=== PATIENT | female | born 1990 | race Caucasian/White ===

== ENCOUNTER 2017-03-30 11:26 | Emergency (ER) | payer OTHER ==
[2017-03-30] MEDS ORDERED: 0.9 % SODIUM CHLORIDE 1,000 ML IV ONE (11:32)
[2017-03-30] MEDS ORDERED: METOPROLOL TARTRATE 5 MG/5 ML VIAL IVP ONE ×5 (11:32→11:52)
[2017-03-30 11:44] LABS: BASOPHILS % 0.5 (0.0-1.5); EOSINOPHILS % 1.1 % (0.0-6.8); MEAN CORPUSCULAR HEMOGLOBIN 31.3 pg (28.0-34.0); MEAN CORPUSCULAR VOLUME 94.6 fl (80.0-100.0); MONOCYTES % 4.4 % (0.0-11.0); NEUTROPHILS # 10.4 # k/uL (1.4-7.7)
[2017-03-30 12:00] LABS: eGFR (African) > 60; eGFR (Non-African) > 60
[2017-03-30 13:15] LABS: APPEARANCE,URINE Clear (CLEAR); COLOR,URINE Yellow (YELLOW); OCCULT BLOOD,URINE Negative (NEGATIVE); PH URINE 5.5 (5.0 - 8.0); UROBILINOGEN URINE 0.2 Eu (0.2-1.0)
[2017-03-30] MEDS ORDERED: POTASSIUM CHLORIDE 20 MEQ TABLET.ER PO ONE (13:27)
--- NOTE | 2017-03-30 13:30 | ED Physician Documentation ---
Palpitations - HISTORIAN Historian: patient - HPI Stated Complaint: fast heart rate Chief Complaint: Palpitations Onset: minutes (20) Timing: sudden onset Context: hx of SVT Quality: fast, pounding heart beat Associated Symptoms: none Worsened by:: nothing Further Comments: yes (26 year old female patient presents with complaint of SVT. Patient reports history of SVT, states she quit taking her metoprolol years ago. Is followed by Dr Garcia at [facility].) - ROS CONST: recent illness (abscessed wisdom tooth; on amoxil) RESP: denies: productive cough, bloody cough GI/: denies: nausea, vomiting with blood, black stools, abdominal pain, diarrhea, problems urinating, vomiting, other MS/SKIN/LYMPH: denies: ankle swelling, calf pain, rash, leg pain, other EYES/ENT: none NEURO/PSYCH: none Comment: LMP - 3 weeks ago - SOCIAL HX Smoking History: cigarettes - FAMILY HX Family History: denies: none - PAST HX Cardiac Disease: other (Ablation 2004 & 2009) Cardiac Rhythm Problems: PSVT Surgeries/Procedures: other (Ablation 2004 & 2009) Immunizations: UTD Allergies/Adverse Reactions: Allergies Allergy/AdvReac Type Severity Reaction Status Date / Time No Known Allergies Allergy Unverified 03/30/17 11:54 Home Medications: Ambulatory Orders Medication Instructions Recorded Metoprolol Tartrate [Lopressor] 25 mg PO BID #60 tablet 03/30/17 - VITAL SIGNS Vital Signs: Vital Signs Temp Pulse Resp BP Pulse Ox 94 H 20 115/80 96 03/30/17 13:40 03/30/17 13:40 03/30/17 13:40 03/30/17 13:40 - REVIEWED ASSESSMENTS Nursing Assessment Reviewed: Yes Vitals Reviewed: Yes Progress - Progress Progress: Patient in SVT on arrival, denies CP or SOB. Patient took a 50mg metoprolol at work, then came to ER. Lopressor 10mg total given IV - rate down in 90s. [address] Soto at [facility], patient last seen on 12/2015. Recommended restarting Metoprolol at 25mg po bid, have patient follow up in office. Reviewed discharge instructions with patient, risk of non-compliance with medications discussed. ED Results Lab/Radiology - Lab Results Lab Results: Lab Results 03/30/17 03/30/17 03/30/17 13:10 11:40 11:40 WBC RBC Hgb Hct MCV MCH MCHC RDW Plt Count Neut % (Auto) Lymph % (Auto) Divide % (Auto) Eos % (Auto) Baso % (Auto) Neut # Lymph # Divide # Eos # Baso # Reactive Lymphs % Reactive Lymphs # Sodium 136 mmol/L mmol/L (136-145) Potassium 3.7 mmol/L mmol/L (3.5-5.0) Chloride 105 mmol/L mmol/L (98-110) Carbon Dioxide 28 mmol/L mmol/L (20-32) BUN 11 mg/dL mg/dL (10-26) Creatinine 0.6 mg/dL mg/dL (0.4-1.5) Estimated Creat Clear 156 Est GFR ( Amer) > 60 (60 - ) Est GFR (Non-Af Amer) > 60 (60 - ) Glucose 106 mg/dL H mg/dL (70-99) Calcium 10.4 mg/dL mg/dL (8.5-10.5) Total Bilirubin 0.2 mg/dL mg/dL (0.2-1.2) AST 14 U/L U/L (0-41) ALT 15 U/L U/L (0-45) Alkaline Phosphatase 71 U/L U/L (46-116) Creatine Kinase 35 U/L U/L (0-225) CK-MB (CK-2) 0.3 ng/mL ng/mL (0.0-5.6) Troponin I < 0.03 ng/mL L ng/mL (0.03-0.06) Total Protein 8.2 g/dL g/dL (6.0-8.5) Albumin 5.2 g/dL g/dL (3.0-5.5) Urine Color Yellow (YELLOW) Urine Appearance Clear (CLEAR) Urine pH 5.5 (5.0 - 8.0) Ur Specific [place] <=1.005 L (1.010-1.030) Urine Protein Negative mg/dL mg/dL (NEGATIVE) Urine Ketones Negative mg/dL mg/dL (NEGATIVE) Urine Occult Blood Negative (NEGATIVE) Urine Nitrite Negative (NEGATIVE) Urine Bilirubin Negative (NEGATIVE) Urine Urobilinogen 0.2 Eu Eu (0.2-1.0) Ur Leukocyte Esterase 1+ H (NEGATIVE) Urine RBC 0-2 (0-2 HPF) Urine WBC 5-10 H (0-5 HPF) Ur Squamous Epith Cells Few (NEG-FEW) Urine Bacteria Few H (NEGATIVE) Urine Glucose Negative mg/dL mg/dL (NEGATIVE) 03/30/17 11:40 WBC 15.90 K/ul H K/ul (4.00-12.00) RBC 4.64 M/ul M/ul (3.90-5.20) Hgb 14.5 g/dL g/dL (12.0-16.0) Hct 43.9 % % (34.5-46.5) MCV 94.6 fl fl (80.0-100.0) MCH 31.3 pg pg (28.0-34.0) MCHC 33.0 g/dL g/dL (30.0-36.0) RDW 13.9 % % (11.3-14.3) Plt Count 362 K/mm3 K/mm3 (130-400) Neut % (Auto) 65.4 % % (39.0-79.0) Lymph % (Auto) 27.4 % % (16.0-50.0) Divide % (Auto) 4.4 % % (0.0-11.0) Eos % (Auto) 1.1 % % (0.0-6.8) Baso % (Auto) 0.5 (0.0-1.5) Neut # 10.4 # k/uL H # k/uL (1.4-7.7) Lymph # 4.4 # k/uL H # k/uL (0.6-4.0) Divide # 0.7 # k/uL # k/uL (0.0-0.9) Eos # 0.2 # k/uL # k/uL (0.0-0.6) Baso # 0.1 # k/uL # k/uL (0.0-0.5) Reactive Lymphs % 1.2 % % (0.0-5.0) Reactive Lymphs # 0.2 # k/uL # k/uL (0.0-0.8) Sodium Potassium Chloride Carbon Dioxide BUN Creatinine Estimated Creat Clear Est GFR ( Amer) Est GFR (Non-Af Amer) Glucose Calcium Total Bilirubin AST ALT Alkaline Phosphatase Creatine Kinase CK-MB (CK-2) Troponin I Total Protein Albumin Urine Color Urine Appearance Urine pH Ur Specific [place] Urine Protein Urine Ketones Urine Occult Blood Urine Nitrite Urine Bilirubin Urine Urobilinogen Ur Leukocyte Esterase Urine RBC Urine WBC Ur Squamous Epith Cells Urine Bacteria Urine Glucose - Orders Orders: ED Orders Category Date Time Status Continuous EKG monitoring Q30M Care 03/30/17 11:35 Active Continuous Pulse Oximetry Q30M Care 03/30/17 11:[address] Saline Lock/IV NOW Care 03/30/17 11:35 Active CHEST 1 VIEW [RAD] Stat Exams 03/30/17 11:35 Completed CBC/PLATELET/DIFF Stat Lab 03/30/17 11:40 Completed CKMB Stat Lab 03/30/17 11:40 Completed CMP Stat Lab 03/30/17 11:40 Completed CREATINE KINASE Stat Lab 03/30/17 11:40 Completed TROPONIN I (cTnI) Stat Lab 03/30/17 11:40 Completed UA W/MICRO IF INDICATED Stat Lab 03/30/17 13:10 Completed URINE CULTURE Stat Lab 03/30/17 13:10 Received 0.9 % Sodium Chloride [Normal Saline] 1,000 ml Med 03/30/17 11:32 Discontinued IV .STK-MED Metoprolol Tartrate [Toprol] Med 03/30/17 11:32 Discontinued 10 mg IVP .STK-MED ONE Metoprolol Tartrate [Toprol] Med 03/30/17 11:36 Discontinued 25 mg IVP NOW ONE Metoprolol Tartrate [Toprol] Med 03/30/17 11:52 Discontinued 25 mg IVP NOW ONE Potassium Chloride [Klor-Con M20] Med 03/30/17 13:27 Discontinued 40 meq PO NOW ONE Oxygen Daily Oxygen 03/30/17 11:45 Ordered EKG WITH COMPARISON Stat Ther 03/30/17 11:35 Completed Palpitations Physical Exam - EXAM General Appearance: moderate distress EENT: eye inspection normal, MAK RESPIRATORY: no respiratory distress CVS: heart sounds normal, equal pulses, no murmur, no gallop, PMI nml, no JVD, no friction rub, tachycardia (SVT 182) ABDOMEN: soft, no organomegaly, normal bowel sounds, no abdominal bruit, no distension BACK: normal inspection, no CVA tenderness SKIN: normal color, warm/dry, NR, INT, PAL, DR EXTREMITIES: non-tender, normal range of motion, no evidence of injury, no edema , J, STILL PHOTOGRAPHER NEURO: oriented X3, CN's nml as tested, motor nml, sensation nml, mood/affect nml Discharge Clincal Impression: SVT (supraventricular tachycardia) Prescriptions: Metoprolol Tartrate [Lopressor] 25 mg PO BID #60 tablet Referrals: Primary Doctor,No [Primary Care Provider] - 2 Days Additional Instructions: Restart your metoprolol in the morning Make a follow up appointment to see Dr Garcia next week. Return to ER if you have SVT, tachycardia or palpitations. Home Medications: Ambulatory Orders Metoprolol Tartrate [Lopressor] 25 mg PO BID #60 tablet 03/30/17 Condition: Stable Disposition: 01 HOME, SELF-CARE Decision to Admit: NO Decision Time: 13:30
[2017-03-30 13:42] VITALS: BP 115/80
--- NOTE | 2017-03-30 13:43 | Diagnostic Imaging Report ---
HOMERO FELDMAN (GLASS [employer]CH[employer] HELPER) - ER [facility] [address] [id number] Report Submission Date: March 30, 2017 1:42:43 PM CDT Patient Study Name: ALLEN TABOR Date: March 30, 2017 11:55:52 AM CDT Modality Type: CR Gender: F Description: CHEST : 89 Institution: [facility] Physician: HOMERO FELDMAN (BRET) - ER Portable chest HISTORY: Supraventricular tachycardia and dyspnea FINDINGS: The lungs are clear. No pleural effusions are observed. Heart size and pulmonary vascularity are normal. Osseous structures are unremarkable. IMPRESSION: Normal chest. Electronically signed on March 30, 2017 1:42:43 PM CDT by: James EARL
== END 2017-03-30 13:40 | disposition home or self-care (01) ==
LOC: ED 11:26
DX: I47.1 Supraventricular tachycardia (principal); T48.2 Poisoning by, adverse effect of and underdosing of other and unspecified drugs acting on muscles; Z91.128 Patient's intentional underdosing of medication regimen for other reason; Y92.9 Unspecified place or not applicable; Y93.9 Activity, unspecified; Y99.9 Unspecified external cause status
CPT/HCPCS: 71010; 80053; 81002; 82550; 82553; 84484; 85025; 87086; 96374; 99283; J3490; J7030